=== PATIENT | male | born 1985 | race Caucasian/White ===

== ENCOUNTER 2020-03-10 15:17 | Emergency (ER) | payer SELFPAY ==
[~2020-03-10] VITALS: Ht 172.7 cm; Wt 86.9 kg
[2020-03-10 15:34] VITALS: BP 146/80
== END 2020-03-10 17:57 | disposition home or self-care (01) ==
LOC: ER 15:17
DX: G51.0 Bell's palsy (principal)
CPT/HCPCS: 93005; 99283; Z7610